=== PATIENT | female | born 1980 | race Two or more races ===

== ENCOUNTER → 2019-07-08 | Outpatient (CLI) | payer OTHER ==
[~2019-07-08] MED LIST: OMNIPAQUE 300 MG/ML, 10ML VIAL ONE
== END | disposition home or self-care (01) ==
LOC: RAD 13:26
PROVIDERS: ATTEND Obstetrics & Gynecology
DX: Z31.41 Encounter for fertility testing (principal); Z98.51 Tubal ligation status
CPT/HCPCS: 58340; 74740; Q9967